=== PATIENT | male | born 2000 | race Caucasian/White ===

== ENCOUNTER 2022-04-02 12:44 | Outpatient (CLI) | payer BC, SELFPAY ==
[2022-04-04 14:13] LABS: TB Skin Test Erythema 0 mm; TB Skin Test Induration 0 mm (0-10); TB Skin Test Interpretation Negative (Negative); TB Skin Test Site Left Arm
[2022-04-05 17:39] LABS: Hepatitis B Surface Antibody Borderline (Nonreactive)
== END 2022-04-02 12:45 | disposition home or self-care (01) ==
LOC: CHSLAB 12:47
PROVIDERS: PCP Family Medicine; Visit Provider Family Medicine
DX: Z02.0 Encounter for examination for admission to educational institution (principal)
CPT/HCPCS: 36415; 86580; 86706